=== PATIENT | male | born 1975 | race Two or more races ===

== ENCOUNTER 2019-08-16 14:20 | Inpatient (IN) | payer MEDICAID, OTHER ==
[~2019-08-16] VITALS: Ht 172.7 cm; Wt 94.0 kg
[2019-08-16] MEDS ORDERED: SODIUM CHLORIDE 0.9% 1,000 ML IV ONE ×2 (14:55)
[2019-08-16 15:03] LABS: Basophils # (auto) 0 10 ^3/uL (0-0.2); Basophils % (auto) 0.3 % (0.0-2.0); Eosinophils # (auto) 0 10 ^3/uL (0-0.8); Eosinophils % (auto) 0.7 % (0.0-7.0); Hematocrit 50.6 % (41.0-53.0); Hemoglobin 17.4 g/dL (13.5-17.5); Lymphocytes % (auto) 21.3 % (10.0-50.0); Mean Corpuscular Hemoglobin 31.3 pg (28.0-32.0); Mean Corpuscular Hgb Conc. 34.3 g/dL (32.0-36.0); Mean Corpuscular Volume 91.2 fL (80.0-100.0); Monocytes # (auto) 0.3 10 ^3/uL (0-1.3); Monocytes % (auto) 7.1 % (0.0-12.0); Neutrophils # (auto) 3.4 10 ^3/uL (1.6-8.6); Neutrophils % (auto) 70.6 % (37.0-80.0); Nucleated Red Blood Cells % 1.1 %; Platelet Count (auto) 100 10^3/uL (140-450); Red Blood Cells 5.55 10^6/uL (4.5-5.90); White Blood Cell 4.8 10^3/uL (4.4-10.8)
[2019-08-16 15:26] LABS: Albumin 3.5 g/dL (3.4-5.0); Anion Gap 17 (5-15); Blood Urea Nitrogen 13 mg/dL (7-18); Calcium 7.8 mg/dL (8.5-10.1); Carbon Dioxide 20 mmol/L (21-32); Chloride 100 mmol/L (98-107); GFR African American 170 mL/min; GFR Non-African American 141 mL/min; Glucose 114 mg/dL (74-106); Potassium 3.2 mmol/L (3.5-5.1); Sodium 137 mmol/L (136-145)
[2019-08-16 15:31] LABS: Alanine Aminotransferase 246 U/L (16-61); Alkaline Phosphatase 80 U/L (45-117); Aspartate Aminotransferase 335 U/L (15-37); Bilirubin, Total 1.3 mg/dL (0.2-1.0)
[2019-08-16] MEDS ORDERED: THIAMINE 100mg/ml INJ (200mg/2ml VIAL) IV ONE (15:45)
[2019-08-16] MEDS ORDERED: POTASSIUM EFFERVESENT TAB 25 MEQ PO ONE (15:45)
[2019-08-16] MEDS ORDERED: chlordiazePOXIDE HCL 5 MG CAP PO ONE (15:45)
[2019-08-16] MEDS ORDERED: LORazepam 2MG/ML-1ML VIAL IV ONE ×2 (16:45→18:30)
[2019-08-16 17:25] LABS: Urine Bacteria NONE SEEN /hpf (None Seen); Urine Blood TRACE /uL (Negative); Urine Mucus FEW (None Seen); Urine Specific Gravity 1.018 (1.001-1.035); Urine WBC 1 /hpf (0 - 3)
[2019-08-16 17:36] LABS: Amphetamine Screen, Urine NEGATIVE (NEGATIVE); Barbiturate Scree,Urine NEGATIVE (NEGATIVE); Benzodiazephine Screen, Urine NEGATIVE (NEGATIVE); Cannabinoid Screen, Urine NEGATIVE (NEGATIVE); Cocaine Screen, Urine NEGATIVE (NEGATIVE); Opiate Scree,Urine NEGATIVE (NEGATIVE); Phencyclidine Screen, Urine NEGATIVE (NEGATIVE)
[2019-08-16] MEDS ORDERED: MORPHINE SULF INJ 2 MG/ML SYRINGE 1ML IV PRN ×3 (17:45→19:30)
[2019-08-16] MEDS ORDERED: NITROGLYCERIN 0.4 MG SL TAB SL PRN ×2 (17:45→19:30)
[2019-08-16] MEDS ORDERED: MULTIPLE VITAMIN TAB PO ONE (19:30)
[2019-08-16] MEDS ORDERED: DOCUSATE SOD 100 MG CAP PO PRN (19:30)
[2019-08-16] MEDS ORDERED: METOCLOPRAMIDE HCL 5MG/ml INJ 2ml VIAL IV PRN (19:30)
[2019-08-16] MEDS ORDERED: FOLIC ACID 1 MG TAB PO ONE (19:30)
[2019-08-16] MEDS ORDERED: THIAMINE HCL 100 MG TAB PO ONE (19:30)
[2019-08-16] MEDS ORDERED: HYDROcodone-ACET 5/325MG TAB PO PRN (19:30)
[2019-08-16] MEDS ORDERED: ALUM & MAG HYDROX-SIMETH LIQ(MAALOX) 30 ML PO PRN (19:30)
[2019-08-16] MEDS: SODIUM CHLORIDE 0.9% 1,000 ML IV SCH (19:54)
[2019-08-16] MEDS: chlordiazePOXIDE HCL 25 MG CAP PO SCH (19:55)
[2019-08-16 20:05] LABS: Cholesterol 98 mg/dL (< 200); HDL Cholesterol 31 mg/dL (40-59); Triglycerides 431 mg/dL (< 150)
[2019-08-16 21:30] VITALS: BP 151/94
--- NOTE | 2019-08-16 21:30 | NUR ---
Telemetry admit from ER [facility] admitted to Telemetry unit after SBAR received. Patient oriented to Millie miles RN, unit, room, bed, and unit policies regarding patient care and visiting hours. Patient now on continuous telemetry monitoring, tele box # 18 and telemetry reading on arrival to unit is SR 93. Patient placed on bedside oxygen, weighed by bed scale and encouraged to call if they need something. All questions and concerns addressed, patient verbalized understanding. Note: Came per wheelchair awake alert oriented x 4, placed in the bed comfortably, vital signs checked.
[2019-08-16 22:00] VITALS: BP 151/94
--- NOTE | 2019-08-16 22:00 | NUR ---
Called/paged Garrett Farah called re:sleeping pill. . Waiting for call back. Continue care.
[2019-08-16] MEDS ORDERED: TEMAZEPAM 15 MG CAP PO ONE (22:30)
[2019-08-16] MEDS ORDERED: cloNIDine HCL 0.1 MG TAB PO ONE (22:30)
--- NOTE | 2019-08-16 22:30 | NUR ---
returned call Clovis Farah returned call, updated on patient status and reason for call, orders received temazepam 15mg.p.o. one cap. x one, clonidine .1mg.p.o.one tab.x one. Continue care.
[2019-08-16] MEDS ORDERED: LORazepam 2MG/ML-1ML VIAL IV PRN (23:30)
[2019-08-16] MEDS ORDERED: LISI10TA6 PO (23:34)
[2019-08-16] MEDS ORDERED: CALCIUM GLUC 4.65meq/50ml D5AE 50 ML IV ONE (23:45)
[2019-08-16] MEDS ORDERED: POTASSIUM CHL 20MEQ/100ML 100 ML IV ONE (23:45)
[2019-08-16] MEDS ORDERED: MAGNESIUM SULFATE 1GM/100ML 100 ML IV ONE (23:45)
[2019-08-17] MEDS: SODIUM CHLORIDE 0.9% 1,000 ML IV SCH ×3 (00:28→10:28)
[2019-08-17] MEDS: LORazepam 0.5 MG TAB PO PRN ×2 (01:34→21:51)
[2019-08-17] MEDS: chlordiazePOXIDE HCL 25 MG CAP PO SCH ×3 (03:18→21:18)
[2019-08-17 05:25] VITALS: BP 148/105
[2019-08-17 06:40] LABS: Basophils # (auto) 0 10 ^3/uL (0-0.2); Basophils % (auto) 0.3 % (0.0-2.0); Eosinophils # (auto) 0.1 10 ^3/uL (0-0.8); Hematocrit 43.4 % (41.0-53.0); Hemoglobin 14.9 g/dL (13.5-17.5); Lymphocytes # (auto) 0.8 10 ^3/uL (0.4-5.4); Lymphocytes % (auto) 16.2 % (10.0-50.0); Mean Corpuscular Hemoglobin 31.7 pg (28.0-32.0); Mean Corpuscular Hgb Conc. 34.4 g/dL (32.0-36.0); Mean Corpuscular Volume 91.9 fL (80.0-100.0); Monocytes # (auto) 0.5 10 ^3/uL (0-1.3); Monocytes % (auto) 9.5 % (0.0-12.0); Neutrophils # (auto) 3.4 10 ^3/uL (1.6-8.6); Nucleated Red Blood Cells % 0.1 %; Platelet Count (auto) 72 10^3/uL (140-450); Red Blood Cells 4.72 10^6/uL (4.5-5.90); Red Cell Distribution Width 13.9 % (11.8-14.3); White Blood Cell 4.8 10^3/uL (4.4-10.8)
[2019-08-17 06:58] LABS: Potassium 3.7 mmol/L (3.5-5.1)
[2019-08-17 07:00] LABS: INR 1.07 (0.9-1.15); Partial Thromboplastin Time 29.5 sec (23.64-32.05)
[2019-08-17 07:07] LABS: Albumin 3.1 g/dL (3.4-5.0); BUN/Creatinine Ratio 15.5; Bilirubin, Total 1.4 mg/dL (0.2-1.0); Calcium 8.2 mg/dL (8.5-10.1); Magnesium 1.8 mg/dL (1.6-2.6); Phosphorus 3.6 mg/dL (2.5-4.90)
--- NOTE | 2019-08-17 07:28 | NUR ---
Report given to Shanda Romo, patient is resting no respiratory distress.
[2019-08-17] MEDS: CALCIUM W/VIT D (600MG/400IU) TAB PO SCH ×2 (08:22→17:59)
[2019-08-17 09:00] VITALS: BP 147/86
[2019-08-17] MEDS ORDERED: MAGNESIUM OXIDE 400 MG TAB PO SCH (10:00)
[2019-08-17] MEDS ORDERED: POTASSIUM CHL 20 Meq TABLET PO SCH (10:00)
[2019-08-17] MEDS: ENOXAPARIN SOD 40 MG/0.4 ML SYRINGE SC SCH (10:00)
[2019-08-17] MEDS: THIAMINE HCL 100 MG TAB PO SCH (10:19)
[2019-08-17] MEDS: FOLIC ACID 1 MG TAB PO SCH (10:19)
[2019-08-17] MEDS: GEMFIBROZIL 600 MG TAB PO SCH (10:20)
[2019-08-17] MEDS: ASPirin 81 mg TAB PO SCH (10:20)
[2019-08-17] MEDS: LISINOPRIL 20 MG TAB PO SCH (10:20)
[2019-08-17] MEDS: MULTIPLE VITAMIN TAB PO SCH ×2 (10:20→10:47)
[2019-08-17] MEDS: FAMOTIDINE (10MG/ML) 2ML VL IV SCH ×2 (10:20→21:19)
[2019-08-17 13:00] VITALS: BP 146/83
[2019-08-17 17:00] VITALS: BP 159/99
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
[2019-08-17] MEDS ORDERED: amLODIPine BESYLATE 5 MG TAB PO ONE (19:45)
--- NOTE | 2019-08-17 20:00 | NUR ---
Opening Shift Note Assumed care of patient, awake and alert. No S/S of distress/SOB or pain. Instructed on POC and to call for assist PRN, will continue to monitor for changes Q1hr and PRN.Advised no food or drink after midnight for ultrasound of the abdomen carlo.
[2019-08-17 22:00] VITALS: BP 133/96
[2019-08-18 05:00] VITALS: BP 128/86
--- NOTE | 2019-08-18 07:30 | NUR ---
Opening Shift Note Assumed care of patient, awake and alert. No S/S of distress/SOB or pain. Instructed on POC and to call for assist PRN, will continue to monitor for changes Q1hr and PRN. Fall precautions in place per safety protocol.
--- NOTE | 2019-08-18 07:33 | NUR ---
Report given to Shanda Romo, patient is NPO for ultrasound of the abdomen, and for G.I consult.
[2019-08-18] MEDS: CALCIUM W/VIT D (600MG/400IU) TAB PO SCH (08:43)
[2019-08-18 09:00] VITALS: BP 136/78
[2019-08-18] MEDS: ENOXAPARIN SOD 40 MG/0.4 ML SYRINGE SC SCH (10:00)
[2019-08-18] MEDS ORDERED: amLODIPine BESYLATE 5 MG TAB PO SCH (10:00)
[2019-08-18] MEDS: FAMOTIDINE (10MG/ML) 2ML VL IV SCH (10:22)
[2019-08-18] MEDS: MULTIPLE VITAMIN TAB PO SCH (10:22)
[2019-08-18] MEDS: ASPirin 81 mg TAB PO SCH (10:22)
[2019-08-18] MEDS: THIAMINE HCL 100 MG TAB PO SCH (10:23)
[2019-08-18] MEDS: GEMFIBROZIL 600 MG TAB PO SCH (10:23)
[2019-08-18] MEDS: chlordiazePOXIDE HCL 25 MG CAP PO SCH (10:23)
[2019-08-18] MEDS: FOLIC ACID 1 MG TAB PO SCH (10:23)
[2019-08-18] MEDS: LISINOPRIL 20 MG TAB PO SCH (10:24)
--- NOTE | 2019-08-18 11:30 | NUR ---
Hospitalist MD Flores at bedside, aware of patient status. Per MD Flores, patient may be discharged after lunch. Will carry out new orders and Continue to monitor patient
[2019-08-18 12:27] VITALS: BP 149/83
--- NOTE | 2019-08-18 12:45 | NUR ---
Discharge Patient requesting to leave now @1230. Per patient he "cannot wait for lunch because the shop where he needs to get his car fixed is going to close at 1." This nurse informed patient that MD Flores wanted him discharged until after lunch and we still needed to get him a taxi voucher therefore, it would be some time before he could leave. Per patient, "I cannot wait for a taxi voucher then, I need to go now, I need you to call the doctor so I can speak with him." This nurse called MD Flores to notify him of patients wishes. Per MD Flores, patient may be discharged now without a voucher if he doesn't want to wait. This nurse attempted to educate patient on his discharge, however patient refused. This nurse gave patient his discharge instructions. Patient encourage to follow up with PMD as instructed. Per patient he has already made a follow-up appointment with his primary in [place]. Medication reconciliation form completed and copy given to patient. IV removed with catheter intact, pressure dressing applied. Telemetry unit returned to ICU. Patient ambulated out of room refusing wheelchair. All personal belongings taken with patient. Patient appeared to be very angry at time of departure.
[2019-08-18] MEDS ORDERED: chlordiazePOXIDE HCL 25 MG CAP PO SCH (22:00)
[2019-08-20] MEDS ORDERED: chlordiazePOXIDE HCL 25 MG CAP PO SCH (07:00)
== END 2019-08-18 12:45 | disposition home or self-care (01) | DRG 816 ==
LOC: ER 14:20 → EDBD 14:20 → TELE 14:21 → TELE-EAST 21:30
PROVIDERS: ADMIT Hospitalist; ATTEND Internal Medicine Nephrology
DX: T51.0X1A Toxic effect of ethanol, accidental (unintentional), initial encounter (principal); R65.11 Systemic inflammatory response syndrome (SIRS) of non-infectious origin with acute organ dysfunction; F10.231 Alcohol dependence with withdrawal delirium; G92 Toxic encephalopathy; D69.6 Thrombocytopenia, unspecified; D75.1 Secondary polycythemia; E44.1 Mild protein-calorie malnutrition; E83.51 Hypocalcemia; E87.2 Acidosis; K70.10 Alcoholic hepatitis without ascites; E86.0 Dehydration; E87.6 Hypokalemia; R73.9 Hyperglycemia, unspecified; K76.0 Fatty (change of) liver, not elsewhere classified; F41.9 Anxiety disorder, unspecified; E78.1 Pure hyperglyceridemia; I10 Essential (primary) hypertension; Z56.0 Unemployment, unspecified; Z59.0 Homelessness; Z79.899 Other long term (current) drug therapy; E66.9 Obesity, unspecified; Z68.31 Body mass index [BMI] 31.0-31.9, adult; Z91.19 Patient's noncompliance with other medical treatment and regimen; R80.9 Proteinuria, unspecified; Y92.59 Other trade areas as the place of occurrence of the external cause; Y90.6 Blood alcohol level of 120-199 mg/100 ml; F17.200 Nicotine dependence, unspecified, uncomplicated
CPT/HCPCS: 36415; 70450; 71045; 76705; 80053; 80061; 80307; 80320; 81001; 83036; 83735; 84100; 84484; 85025; 85610; 85730; G0378; J0610; J3480; J3490